=== PATIENT | male | born 1990 | race Two or more races ===

== ENCOUNTER 2019-03-05 14:22 | Emergency (ER) | payer BC, OTHER ==
[~2019-03-05] VITALS: Ht 180.3 cm; Wt 108.9 kg
[2019-03-05 16:54] VITALS: BP 121/79
== END 2019-03-05 17:56 | disposition home or self-care (01) ==
LOC: ER 14:30
DX: J06.9 Acute upper respiratory infection, unspecified (principal)

== ENCOUNTER 2020-06-04 12:50 | Emergency (ER) | payer BC, OTHER ==
[~2020-06-04] VITALS: Ht 180.3 cm; Wt 99.8 kg
[2020-06-04 14:05] VITALS: BP 104/67
== END 2020-06-04 14:43 | disposition home or self-care (01) ==
LOC: ER 12:50
DX: Z76.0 Encounter for issue of repeat prescription (principal)